=== PATIENT | female | born 1965 | race Hispanic/Latino ===

== ENCOUNTER → 2018-06-23 | Outpatient (CLI) | payer OTHER ==
[~2018-06-23] MED LIST: BYSTOLIC; CYCLOBENZAPRINE10 MG PO; FIORICET1 EA PO; FLECTOR1 EACH; FUROSEMIDE; GLIMEPIRIDE; HUMALOG100 UNITS/ SC; JANUMET 50-1,01 EACH PO; LANTUS100 UNITS/ PO; LOSARTAN POTASS25 MG; METFORMIN HCL500 MG PO; ONGLYZA2.5 MG; VITAMIN D400 UNIT PO; Z.0.JANUMET XR 50-1
--- NOTE | 2018-06-30 08:37 | Diagnostic Imaging Report ---
#[id number] - MGSCRBIL #BILATERAL DIGITAL SCREENING MAMMOGRAM WITH CAD: 06/23/2018 CLINICAL: Routine screening. Comparison is made to exams dated: 05/24/2017 mammogram, 11/26/2015 mammogram and 09/19/2013 mammogram - [facility]. Current study contains 4 films. There are scattered fibroglandular elements in both breasts. Current study was also evaluated with a Computer Aided Detection (CAD) system. There is a possible mass in the right breast at 11 o'clock middle depth. There are scattered calcifications in both breasts. Biopsy marker clip noted in the right breast. No other significant masses, calcifications, or other findings are seen in either breast. IMPRESSION: INCOMPLETE: NEEDS ADDITIONAL IMAGING EVALUATION The possible mass in the right breast is indeterminate. Additional views with possible ultrasound are recommended. The patient will be contacted by the Mammography Department to schedule this appointment. Denny Veliz Jr., D.O. cw/:06/27/2018 12:09:58 Ethernet Network Architect: Razia PATRICIA(Luisa)(M), [facility] letter sent: Additional Imaging Needed Mammogram BI-RADS: 0 Indeterminate
== END ==
LOC: MAMMO 12:17
PROVIDERS: ATTEND Family Medicine
DX: Z12.31 Encounter for screening mammogram for malignant neoplasm of breast (principal)
CPT/HCPCS: 77067

== ENCOUNTER → 2018-07-16 | Outpatient (CLI) | payer OTHER ==
--- NOTE | 2018-07-17 08:21 | Diagnostic Imaging Report ---
#[id number] - MGDXRT #UNILATERAL RIGHT DIGITAL DIAGNOSTIC MAMMOGRAM WITH SPOT COMPRESSION: 07/16/2018 Comparison is made to exams dated: 05/24/2017 mammogram and 11/26/2015 mammogram - [facility]. Current study contains 3 films. There are scattered fibroglandular elements in the right breast. There is an irregular mass in the right breast at 11 o'clock middle depth that persists despite focal spot compression. No other significant masses or calcifications are seen in the breast. IMPRESSION: INCOMPLETE: NEEDS ADDITIONAL IMAGING EVALUATION The irregular mass in the right breast is indeterminate. An ultrasound is recommended and will be performed today. Denny Veliz Jr., D.O. cw/:07/16/2018 12:14:19 Physician Coding Specialist: Razia PATRICIA(Luisa)(M), [facility] letter sent: Additional Imaging Needed Mammogram BI-RADS: 0 Indeterminate
--- NOTE | 2018-07-17 08:21 | Diagnostic Imaging Report ---
#[id number] - USBRELIMRT ULTRASOUND OF THE RIGHT BREAST : 07/16/2018 Comparison is made to exams dated: 07/16/2018 mammogram, 06/23/2018 mammogram and 05/24/2017 mammogram - [facility]. Color flow and real-time ultrasound were performed on the right breast with scanning in the upper outer aspect. -At 10-11 o'clock 7 cm from the nipple is a 10 x 5 x 11 mm oblong cyst. This most likely corresponds to the mammographic finding. IMPRESSION: BENIGN There is no sonographic evidence of malignancy. A 1 year screening mammogram is recommended. Denny Veliz Jr., D.O. cw/:07/16/2018 12:17:59 Valet Manager: Radha Thrasher [facility], [facility] letter sent: Normal Exam Ultrasound BI-RADS: 2 Benign
== END ==
LOC: MAMMO 09:22
PROVIDERS: ATTEND Family Medicine
DX: N63.10 Unspecified lump in the right breast, unspecified quadrant (principal)

== ENCOUNTER → 2019-07-22 | Outpatient (CLI) | payer OTHER | LOC: MAMMO 15:18 | PROVIDERS: ATTEND Family Medicine | DX: Z12.31 Encounter for screening mammogram for malignant neoplasm of breast (principal) | CPT/HCPCS: 77067 ==

== ENCOUNTER → 2020-08-01 | Outpatient (CLI) | payer OTHER | LOC: MAMMO 10:43 | PROVIDERS: ATTEND Family Medicine | DX: Z12.31 Encounter for screening mammogram for malignant neoplasm of breast (principal) | CPT/HCPCS: 77067 ==